=== PATIENT | male | born 1975 | race Caucasian/White ===

== ENCOUNTER 2019-01-20 13:18 | Emergency (ER) | payer OTHER, SELFPAY | END 2019-01-20 14:45 | disposition home or self-care (01) | LOC: BURERS 13:18 | DX: Z04.1 Encounter for examination and observation following transport accident (principal); F17.210 Nicotine dependence, cigarettes, uncomplicated; V89.2XXA Person injured in unspecified motor-vehicle accident, traffic, initial encounter | CPT/HCPCS: 99284 ==